=== PATIENT | female | born 1955 | race Two or more races ===

== ENCOUNTER 2018-05-26 14:18 | Emergency (ER) | payer OTHER ==
[~2018-05-26] VITALS: Ht 160 cm; Wt 56.7 kg
--- NOTE | 2018-05-26 14:45 | NUR ---
63 YEARS OLD FEMALE WALKING TO ER WITH FAMILY C/O UNABLE TO EAT, NAUSEA, NO VOMITING DIARRHEA, POOR PO INTAKE FOR 1 MONTH.
[2018-05-26] MEDS: IV NORMAL SALINE 1000 ML BAG IV ONE ×2 (15:16→16:47)
[2018-05-26 15:23] LABS: BASOPHILS # (AUTO) 0.2 K/uL (0.0-8.0); BASOPHILS % (AUTO) 2.6 % (0.0-2.0); EOSINOPHILS # (AUTO) 0.2 K/uL (0.0-0.7); EOSINOPHILS % (AUTO) 2.2 % (0.0-7.0); HEMATOCRIT 40.1 % (31.2-41.9); HEMOGLOBIN 13.3 g/dL (10.9-14.3); LYMPHOCYTES # (AUTO) 2.1 K/uL (20.0-40.0); LYMPHOCYTES % (AUTO) 29.4 % (20.5-51.5); MEAN CORPUSCULAR HGB CONC 33 g/dL (32.3-35.6); MEAN CORPUSCULAR VOLUME 78.2 fL (75.5-95.3); MONOCYTES # (AUTO) 0.4 K/uL (2.0-10.0); MONOCYTES % (AUTO) 5.6 % (0.0-11.0); NEUTROPHILS # (AUTO) 4.3 K/uL (1.8-8.9); NEUTROPHILS % (AUTO) 60.2 % (38.5-71.5); PLATELET COUNT (AUTO) 179 K/uL (179-408); RED BLOOD CELL COUNT(AUTO) 5.13 MIL/uL (3.63-4.92); WHITE BLOOD COUNT (AUTO) 7.1 K/uL (3.8-11.8)
[2018-05-26 15:31] LABS: BILIRUBIN,DIRECT 0.2 mg/dL (0.0-0.2); BILIRUBIN,TOTAL 0.9 mg/dL (0.2-1.0); CREATININE 0.9 mg/dL (0.6-1.3)
[2018-05-26] MEDS ORDERED: METOCLOPRAMIDE HCL 10 MG/2 ML VIAL ONE (15:44)
[2018-05-26] MEDS ORDERED: FAMOTIDINE. 20 MG/2 ML VIAL IV ONE (15:44)
[2018-05-26] MEDS: METOCLOPRAMIDE HCL 10 MG/2 ML VIAL IV ONE (15:47)
[2018-05-26] MEDS: FAMOTIDINE. 20 MG/2 ML VIAL IV ONE (15:47)
[2018-05-26] MEDS ORDERED: diphenhydrAMINE 50 MG/1 ML VIAL ONE (16:34)
[2018-05-26] MEDS: diphenhydrAMINE 50 MG/1 ML VIAL IV ONE (16:37)
[2018-05-26 17:14] VITALS: BP 126/81
--- NOTE | 2018-05-26 17:17 | NUR ---
PATIENT CONDITION STABLE D/C HOME WITH INSTRUCTIONS AFTER CARE REVIEWED UNDERSTOOD LEFT ER WITH FAMILY ALERT, ORIENTED X4 DENIES ABDOMINAL PAIN NAUSEA VOMITING DIARRHEA.
[2018-06-09] MEDS ORDERED: FAMO40TA71 PO (11:50)
[2018-06-09] MEDS ORDERED: LORAZEPAM (11:50)
[2018-06-09] MEDS ORDERED: ZOFRAN (11:50)
== END 2018-05-26 17:53 | disposition home or self-care (01) ==
LOC: ER 14:18
DX: K29.70 Gastritis, unspecified, without bleeding (principal); K21.9 Gastro-esophageal reflux disease without esophagitis; Z88.0 Allergy status to penicillin; Z88.5 Allergy status to narcotic agent; Z88.8 Allergy status to other drugs, medicaments and biological substances
CPT/HCPCS: 36415; 71045; 80048; 80076; 83690; 85025; 85730; 93005; 96361; 96374; 96375; 99284; J1200; J2765; J3490; A4663; J7030

== ENCOUNTER 2018-05-31 21:15 | Emergency (ER) | END 2018-05-31 23:34 | disposition home or self-care (01) | DX: K29.70 Gastritis, unspecified, without bleeding (principal); J45.909 Unspecified asthma, uncomplicated; Z88.0 Allergy status to penicillin; Z88.1 Allergy status to other antibiotic agents; Z88.5 Allergy status to narcotic agent; Z88.2 Allergy status to sulfonamides; Z88.8 Allergy status to other drugs, medicaments and biological substances | CPT/HCPCS: 36415; 80048; 80076; 83690; 85025; 96361; 96374; 99283; J2405 ==

== ENCOUNTER 2018-06-14 10:25 | Emergency (ER) | payer OTHER ==
[~2018-06-14] VITALS: Ht 160 cm; Wt 53.5 kg
[2018-06-14] MEDS ORDERED: FAMO40TA71 PO (10:39)
[2018-06-14] MEDS ORDERED: ONDA4TAB5 PO (10:39)
[2018-06-14] MEDS ORDERED: LORA0.5T PO (10:39)
--- NOTE | 2018-06-14 10:52 | NUR ---
PT IS IN ROOM #2A. DR QUARLES EVALUATED THE PT.
[2018-06-14] MEDS ORDERED: ONDANSETRON 4 MG/2 ML VIAL IV ONE (11:00)
[2018-06-14] MEDS ORDERED: IV NORMAL SALINE 1000 ML BAG IV ONE (11:00)
[2018-06-14 11:10] LABS: BASOPHILS # (AUTO) 0.1 K/uL (0.0-8.0); BASOPHILS % (AUTO) 0.8 % (0.0-2.0); EOSINOPHILS # (AUTO) 0.3 K/uL (0.0-0.7); EOSINOPHILS % (AUTO) 5.2 % (0.0-7.0); HEMATOCRIT 41.1 % (31.2-41.9); HEMOGLOBIN 13.6 g/dL (10.9-14.3); LYMPHOCYTES % (AUTO) 30.4 % (20.5-51.5); MEAN CORPUSCULAR HEMOGLOBIN 25.9 uug (24.7-32.8); MEAN CORPUSCULAR HGB CONC 33 g/dL (32.3-35.6); MEAN CORPUSCULAR VOLUME 78.4 fL (75.5-95.3); MONOCYTES # (AUTO) 0.6 K/uL (2.0-10.0); MONOCYTES % (AUTO) 8.3 % (0.0-11.0); NEUTROPHILS # (AUTO) 3.7 K/uL (1.8-8.9); NEUTROPHILS % (AUTO) 55.3 % (38.5-71.5); PLATELET COUNT (AUTO) 185 K/uL (179-408); RED BLOOD CELL COUNT(AUTO) 5.24 MIL/uL (3.63-4.92); WHITE BLOOD COUNT (AUTO) 6.6 K/uL (3.8-11.8)
[2018-06-14] MEDS ORDERED: ONDANSETRON 4 MG/2 ML VIAL ONE (11:10)
[2018-06-14 11:17] LABS: CREATININE 0.9 mg/dL (0.6-1.3); POTASSIUM 3.8 mmol/L (3.5-5.1)
[2018-06-14 11:23] LABS: BILIRUBIN,DIRECT 0.2 mg/dL (0.0-0.2); TOTAL PROTEIN, SERUM 7.2 g/dL (6.4-8.2)
--- NOTE | 2018-06-14 12:52 | NUR ---
PT WAS D/C'd TO HOME D/C INSTRUCTIONS GIVEN TO THE PT.
[2018-06-14 12:53] VITALS: BP 129/68
== END 2018-06-14 12:54 | disposition home or self-care (01) ==
LOC: ER 10:25
DX: R10.13 Epigastric pain (principal); R42 Dizziness and giddiness; J45.909 Unspecified asthma, uncomplicated; Z88.0 Allergy status to penicillin; Z88.5 Allergy status to narcotic agent; Z88.8 Allergy status to other drugs, medicaments and biological substances; Z79.899 Other long term (current) drug therapy
CPT/HCPCS: 36415; 71045; 80048; 80076; 83690; 85025; 93005; 96361; 96374; 99284; J2405; A4663; J7030

== ENCOUNTER 2018-06-24 12:49 | Emergency (ER) | payer OTHER ==
[~2018-06-24] VITALS: Ht 160 cm; Wt 54.4 kg
[~2018-06-24 12:49] MED LIST: FAMO40TA71 PO; LORA0.5T PO; LORAZEPAM; ONDA4TAB5 PO; ZOFRAN
--- NOTE | 2018-06-24 13:06 | NUR ---
Dr Muhammad at the bedside for MSE.
[2018-06-24] MEDS ORDERED: LORAZEPAM 0.5 MG TABLET PO ONE (13:15)
[2018-06-24] MEDS ORDERED: ONDANSETRON 4 MG/2 ML VIAL IV ONE (13:15)
[2018-06-24] MEDS ORDERED: IV NORMAL SALINE 1000 ML BAG IV ONE (13:15)
[2018-06-24] MEDS ORDERED: LORAZEPAM 1 MG TABLET ONE (13:24)
[2018-06-24] MEDS ORDERED: ONDANSETRON 4 MG/2 ML VIAL ONE (13:24)
[2018-06-24 13:25] LABS: BASOPHILS # (AUTO) 0.1 K/uL (0.0-8.0); BASOPHILS % (AUTO) 1.3 % (0.0-2.0); EOSINOPHILS # (AUTO) 0.4 K/uL (0.0-0.7); EOSINOPHILS % (AUTO) 5.5 % (0.0-7.0); HEMATOCRIT 40.7 % (31.2-41.9); HEMOGLOBIN 13.4 g/dL (10.9-14.3); LYMPHOCYTES # (AUTO) 2.5 K/uL (20.0-40.0); LYMPHOCYTES % (AUTO) 38.9 % (20.5-51.5); MEAN CORPUSCULAR HEMOGLOBIN 25.8 uug (24.7-32.8); MEAN CORPUSCULAR HGB CONC 33 g/dL (32.3-35.6); MEAN CORPUSCULAR VOLUME 78.5 fL (75.5-95.3); MONOCYTES # (AUTO) 0.6 K/uL (2.0-10.0); MONOCYTES % (AUTO) 8.5 % (0.0-11.0); NEUTROPHILS % (AUTO) 45.8 % (38.5-71.5); PLATELET COUNT (AUTO) 163 K/uL (179-408); RED BLOOD CELL COUNT(AUTO) 5.18 MIL/uL (3.63-4.92); WHITE BLOOD COUNT (AUTO) 6.5 K/uL (3.8-11.8)
[2018-06-24 13:29] LABS: CREATININE 0.9 mg/dL (0.6-1.3); POTASSIUM 3.6 mmol/L (3.5-5.1)
[2018-06-24 13:35] LABS: BILIRUBIN,DIRECT 0.2 mg/dL (0.0-0.2); TOTAL PROTEIN, SERUM 6.8 g/dL (6.4-8.2)
--- NOTE | 2018-06-24 14:17 | NUR ---
Patient discharged to home in stable conditon. Written and verbal after care instructions given. Patient verbalizes understanding of instructions.
[2018-06-24 14:19] VITALS: BP 118/75
== END 2018-06-24 14:19 | disposition home or self-care (01) ==
LOC: ER 12:49
DX: K29.70 Gastritis, unspecified, without bleeding (principal); J45.909 Unspecified asthma, uncomplicated; Z88.0 Allergy status to penicillin; Z88.8 Allergy status to other drugs, medicaments and biological substances; Z88.5 Allergy status to narcotic agent; Z79.899 Other long term (current) drug therapy
CPT/HCPCS: 36415; 80048; 80076; 83690; 85025; 96361; 96374; 99283; J2405; A4663; J7030

== ENCOUNTER 2018-06-28 17:03 | Emergency (ER) | payer OTHER ==
[~2018-06-28] VITALS: Ht 160 cm; Wt 51.7 kg
[2018-06-28] MEDS ORDERED: LORAZEPAM 2 MG/1 ML VIAL IV ONE (19:15)
[2018-06-28] MEDS ORDERED: KETOROLAC TROMETHAMINE 30 MG INJ IVP ONE (19:15)
[2018-06-28] MEDS ORDERED: ONDANSETRON 4 MG/2 ML VIAL IV ONE (19:15)
[2018-06-28] MEDS ORDERED: IV NORMAL SALINE 1000 ML BAG IV ONE (19:15)
--- NOTE | 2018-06-28 19:31 | NUR ---
Recieved report from frida RN, assumed care of pt.,
[2018-06-28 19:33] LABS: BASOPHILS % (AUTO) 0.5 % (0.0-2.0); EOSINOPHILS # (AUTO) 0.2 K/uL (0.0-0.7); EOSINOPHILS % (AUTO) 4.1 % (0.0-7.0); HEMATOCRIT 39.4 % (31.2-41.9); HEMOGLOBIN 13.1 g/dL (10.9-14.3); LYMPHOCYTES # (AUTO) 2.3 K/uL (20.0-40.0); LYMPHOCYTES % (AUTO) 38.7 % (20.5-51.5); MEAN CORPUSCULAR HEMOGLOBIN 25.8 uug (24.7-32.8); MEAN CORPUSCULAR HGB CONC 33 g/dL (32.3-35.6); MEAN CORPUSCULAR VOLUME 77.7 fL (75.5-95.3); MONOCYTES # (AUTO) 0.6 K/uL (2.0-10.0); MONOCYTES % (AUTO) 9.9 % (0.0-11.0); NEUTROPHILS # (AUTO) 2.8 K/uL (1.8-8.9); NEUTROPHILS % (AUTO) 46.8 % (38.5-71.5); PLATELET COUNT (AUTO) 166 K/uL (179-408); RED BLOOD CELL COUNT(AUTO) 5.07 MIL/uL (3.63-4.92)
[2018-06-28] MEDS ORDERED: KETOROLAC TROMETHAMINE 30 MG INJ ONE (19:36)
[2018-06-28] MEDS ORDERED: ONDANSETRON HCL 4 MG/5 ML UDC ORAL SOL ONE (19:36)
[2018-06-28] MEDS ORDERED: LORAZEPAM 2 MG/1 ML VIAL ONE (19:38)
[2018-06-28] MEDS ORDERED: ONDANSETRON 4 MG/2 ML VIAL ONE (19:39)
[2018-06-28 19:50] LABS: CREATININE 0.8 mg/dL (0.6-1.3); POTASSIUM 3.9 mmol/L (3.5-5.1)
[2018-06-28 19:57] LABS: BILIRUBIN,DIRECT 0.2 mg/dL (0.0-0.2); BILIRUBIN,TOTAL 0.7 mg/dL (0.2-1.0); TOTAL PROTEIN, SERUM 6.3 g/dL (6.4-8.2)
--- NOTE | 2018-06-28 20:03 | NUR ---
Pt. up to use restroom, walks w/ steady gait, IV patent - no s/s infection,
--- NOTE | 2018-06-28 20:40 | NUR ---
Patient discharged to home in stable conditon. Written and verbal after care instructions given. Patient verbalizes understanding of instructions. Pt. d/c w/ prescription per MD order, d/c papers signed, all belongings w/ pt., ID band/IV removed, left in private vehicle, ambulated out of ED w/ steady gait, NAD,
== END 2018-06-28 20:40 | disposition home or self-care (01) ==
LOC: ER 17:08
DX: F41.9 Anxiety disorder, unspecified (principal); R11.0 Nausea; J45.909 Unspecified asthma, uncomplicated; Z88.0 Allergy status to penicillin; Z88.5 Allergy status to narcotic agent; Z88.1 Allergy status to other antibiotic agents; Z88.8 Allergy status to other drugs, medicaments and biological substances; Z79.899 Other long term (current) drug therapy
CPT/HCPCS: 36415; 80048; 80076; 83690; 85025; 96374; 96375; 99284; J1885; J2060; J2405; A4663; J7030; Q0162

== ENCOUNTER 2018-07-02 15:22 | Emergency (ER) | payer OTHER ==
[~2018-07-02] VITALS: Ht 160 cm; Wt 51.3 kg
[2018-07-02 16:20] LABS: *BILIRUBIN,URIN NEGATIVE (NEGATIVE); *BLOOD, URINE NEGATIVE (NEGATIVE); *CLARITY,URINE CLEAR (CLEAR); *COLOR,URINE YELLOW (YELLOW); *KETONES,URINE 2+ (NEGATIVE); *PROTEIN,URINE NEGATIVE (NEGATIVE); *UROBILINOGEN,URINE 0.2 E.U./dl (NORMAL); LEUKOCYTE ESTERASE ,URINE TRACE (NEGATIVE); NITRITE, URINE NEGATIVE (NEGATIVE); PH,URINE 6.5 (5.0-8.0); UGLUCOSE NEGATIVE (NEGATIVE)
[2018-07-02 16:28] LABS: RBC,URINE 0-3 /HPF (0-3)
[2018-07-02 16:29] LABS: BACTERIA,URINE RARE /HPF (NONE SEEN); SQUAMOUS EPITHELIAL CELL,UR FEW /HPF (NONE SEEN)
[2018-07-02] MEDS ORDERED: ONDANSETRON ODT 4 MG TAB.RAPDIS SL ONE (16:30)
[2018-07-02] MEDS ORDERED: FAMOTIDINE 20 MG TABLET PO ONE (16:30)
[2018-07-02] MEDS ORDERED: ONDANSETRON ODT 4 MG TAB.RAPDIS ONE (16:31)
[2018-07-02] MEDS ORDERED: FAMOTIDINE 20 MG TABLET ONE (16:32)
[2018-07-02] MEDS ORDERED: ONDANSETRON 4 MG/2 ML VIAL ONE (16:39)
[2018-07-02] MEDS ORDERED: FAMOTIDINE. 20 MG/2 ML VIAL IV ONE ×2 (16:39→16:45)
[2018-07-02] MEDS ORDERED: ONDANSETRON IV *ER 4 MG/2 ML VIAL IV ONE (16:45)
--- NOTE | 2018-07-02 17:33 | NUR ---
Patient discharged to home in stable conditon. Written and verbal after care instructions given. Patient verbalizes understanding of instructions.pt walks in steady gait pt says feels better. pt denies nausea at his point.pt with
== END 2018-07-02 17:35 | disposition home or self-care (01) ==
LOC: ER 15:22
DX: R10.13 Epigastric pain (principal); J45.909 Unspecified asthma, uncomplicated; Z88.0 Allergy status to penicillin; Z88.5 Allergy status to narcotic agent; Z88.1 Allergy status to other antibiotic agents; Z88.8 Allergy status to other drugs, medicaments and biological substances; Z79.899 Other long term (current) drug therapy
CPT/HCPCS: 81001; 96374; 96375; 99283; J2405; J3490; A4663; J7030; Q0162

== ENCOUNTER 2018-07-03 04:46 | Emergency (ER) | payer OTHER ==
[~2018-07-03] VITALS: Ht 160 cm; Wt 51.3 kg
[2018-07-03] MEDS ORDERED: MAG HYDROX/AL HYDROX/SIMETH 30 ML LIQUID UDC ONE (05:40)
[2018-07-03] MEDS ORDERED: ONDANSETRON 4 MG/2 ML VIAL ONE (05:40)
[2018-07-03] MEDS ORDERED: FAMOTIDINE. 20 MG/2 ML VIAL IV ONE ×2 (05:41→05:45)
[2018-07-03] MEDS ORDERED: LORAZEPAM 2 MG/1 ML VIAL ONE (05:41)
[2018-07-03] MEDS ORDERED: ONDANSETRON IV *ER 4 MG/2 ML VIAL IV ONE (05:45)
[2018-07-03] MEDS ORDERED: LORAZEPAM 2 MG/1 ML VIAL IV ONE (05:45)
[2018-07-03] MEDS ORDERED: MAG HYDROX/AL HYDROX/SIMETH 30 ML LIQUID UDC PO ONE (05:45)
--- NOTE | 2018-07-03 06:13 | NUR ---
IV removed. Catheter intact and site benign. Pressure and 4x4 gauze applied to site. No bleeding noted.
--- NOTE | 2018-07-03 06:16 | NUR ---
Patient discharged to home in stable conditon. Written and verbal after care instructions given. Patient verbalizes understanding of instructions. PATIENT LEFT WITH STABLE GAIT, ACCOMPANIED BY .
[2018-07-03 06:19] VITALS: BP 126/85
== END 2018-07-03 06:30 | disposition home or self-care (01) ==
LOC: ER 04:47
DX: K21.9 Gastro-esophageal reflux disease without esophagitis (principal); F41.9 Anxiety disorder, unspecified; J45.909 Unspecified asthma, uncomplicated; Z88.0 Allergy status to penicillin; Z88.1 Allergy status to other antibiotic agents; Z88.5 Allergy status to narcotic agent; Z88.8 Allergy status to other drugs, medicaments and biological substances; Z79.899 Other long term (current) drug therapy
CPT/HCPCS: 96374; 96375; 99284; J2060; J2405; J3490; A4663

== ENCOUNTER 2018-07-06 14:41 | Emergency (ER) | payer OTHER ==
[~2018-07-06] VITALS: Ht 160 cm; Wt 52.2 kg
--- NOTE | 2018-07-06 15:38 | NUR ---
PT IS IN ROOM #2B. DR MARTINEZ TALKED TO THE PT.
[2018-07-06] MEDS ORDERED: ONDANSETRON ODT 4 MG TAB.RAPDIS SL ONE (17:00)
[2018-07-06] MEDS ORDERED: ONDANSETRON ODT 4 MG TAB.RAPDIS ONE (17:07)
[2018-07-06] MEDS ORDERED: GABAPENTIN 100 MG CAPSULE PO ONE (17:15)
--- NOTE | 2018-07-06 17:24 | NUR ---
PT IS IN ROOM #2B. DR MARTINEZ EVALUATED THE PT.
[2018-07-06] MEDS ORDERED: ONDANSETRON 4 MG/2 ML VIAL IM ONE (17:30)
[2018-07-06] MEDS ORDERED: ONDANSETRON 4 MG/2 ML VIAL ONE (17:36)
[2018-07-06] MEDS ORDERED: GABAPENTIN 100 MG CAPSULE ONE (17:36)
--- NOTE | 2018-07-06 17:36 | NUR ---
PT REFUSED ZOFRAN 8 MG S/L. DR MARTINEZ NOTIFIED. PT REQUESTED IV INSERTION. DR MARTINEZ TALKED TO THE PT AND EXPLAINED TREATMENT PLAN TO HER.
--- NOTE | 2018-07-06 17:47 | NUR ---
PT REQUESTED TO TALK TO HYPERION ANALYST. HYPERION ANALYST CYNDI WAS CALLED AND HE TALKED TO THE PT. TITA BUCHANAN BROUGHT MEDICATION TO THE PT, BUT PT REQUESTED TO TALK TO DR MARTINEZ AGAIN. DR MARTINEZ TALKED TO THE PT.
--- NOTE | 2018-07-06 18:35 | NUR ---
PT WAS D/C'D TO HOME. D/C INSTRUCTIONS GIVEN TO THE PT.
[2018-07-06 18:44] VITALS: BP 132/72
== END 2018-07-06 18:45 | disposition home or self-care (01) ==
LOC: ER 14:41
DX: M79.7 Fibromyalgia (principal); J45.909 Unspecified asthma, uncomplicated; Z88.0 Allergy status to penicillin; Z88.5 Allergy status to narcotic agent; Z88.1 Allergy status to other antibiotic agents; Z88.8 Allergy status to other drugs, medicaments and biological substances; Z79.899 Other long term (current) drug therapy
CPT/HCPCS: 96372; 99283; J2405; A4663; Q0162

== ENCOUNTER 2018-07-09 03:00 | Emergency (ER) | payer OTHER ==
[~2018-07-09] VITALS: Ht 160 cm; Wt 50.8 kg
--- NOTE | 2018-07-09 03:00 | NUR ---
Pt. ambulated into ED w/ c/o N/V/D and indigestion since May, denies CP/SINCLAIR/F/C, abd. s/r/nt/nd, BS active x 4, A/Ox4,
[2018-07-09] MEDS ORDERED: PROCHLORPERAZINE 10 MG TAB (03:11)
[2018-07-09] MEDS ORDERED: ONDANSETRON 4 MG/2 ML VIAL IM ONE ×2 (03:30→05:00)
[2018-07-09] MEDS ORDERED: ONDANSETRON 4 MG/2 ML VIAL ONE ×2 (03:30→04:53)
--- NOTE | 2018-07-09 03:37 | NUR ---
Collected strep swab specimen from [facility] and sent to lab,
--- NOTE | 2018-07-09 03:55 | NUR ---
Pt. up to use restroom, ambulates w/o difficulty, states she feels "a little better"
[2018-07-09] MEDS ORDERED: HYDROMORPHONE 1 MG/1 ML DISP.SYRIN ONE (04:53)
[2018-07-09] MEDS ORDERED: HYDROMORPHONE 1 MG/1 ML DISP.SYRIN IM ONE (05:00)
--- NOTE | 2018-07-09 05:23 | NUR ---
Patient discharged to home in stable conditon. Written and verbal after care instructions given. Patient verbalizes understanding of instructions. Pt. d/c per MD orders, d/c papers signed, all belongings w/ pt., instructed not to drive, ID band removed, ambulated out of ED w/ steady gait, NAD, awaiting ride from in waiting room,
== END 2018-07-09 05:25 | disposition home or self-care (01) ==
LOC: ER 03:02
DX: B34.9 Viral infection, unspecified (principal); J45.909 Unspecified asthma, uncomplicated; Z88.0 Allergy status to penicillin; Z88.5 Allergy status to narcotic agent; Z88.1 Allergy status to other antibiotic agents; Z88.8 Allergy status to other drugs, medicaments and biological substances; Z79.899 Other long term (current) drug therapy
CPT/HCPCS: 36415; 86403; 96372 ×3; 99283; J1170; J2405 ×2; A4663